=== PATIENT | male | born 1960 | race Two or more races ===

== ENCOUNTER → 2024-05-07 | Outpatient (CLI) | payer MEDICARE, MEDICAID, SELFPAY ==
--- NOTE | 2024-05-07 10:31 | XR_ITS ---
Examination: Bone densitometry Date and time of exam:May 07, 2024 1044 hours INDICATIONS:-64-year-old male, diabetic, history wrist fracture 20 years ago Technique: Lumbar spine and hip total bone mineralization values of an calculated. Peak reference and age match control results have been displayed. Findings: Lumbar spine total bone mineralization is1.039 gm/cm2. This is 0.5 standard deviations below peak reference. This is 0.2 standard deviations above age-matched controls. Hip total bone mineralization is 1.162 gm/cm2 This is 0.8 standard deviations above peak reference. This is 1.3 standard deviations above age-matched controls Impression: There is normal mineralization based on lumbar spine measurements. There is normal mineralization based on hip measurements
== END | disposition home or self-care (01) ==
PROVIDERS: Referring Provider Family Medicine; Visit Provider Family Medicine
DX: M81.0 Age-related osteoporosis without current pathological fracture (principal)
CPT/HCPCS: 77080

== ENCOUNTER → 2024-05-28 | Outpatient (CLI) | payer MEDICARE, MEDICAID, SELFPAY ==
--- NOTE | 2024-05-28 14:30 | XR_ITS ---
Examination: MRI brain without intravenous contrast. Date and time of exam: May 28, 2024 1506 hours INDICATIONS: Onset headaches with dizziness numbness in the extremities increasing memory loss 3 years, diagnosis amnesia Technique: Multiple axial and sagittal images of the brain obtained. Siemens high-resolution 1.5 Amy short bore scanners utilized. Sagittal sections, T1-weighted, TR 500, TE 14, are performed. Axial sections proton-density and T2-weighted have been obtained. Inversion recovery axial images, TR 9, 260, TE 111, TI 2500. Diffusion weighted images, axial sections, TR 4800, TE 128, B value 1000 Axial sections, ADC map, TR 4800, TE 128 Findings: Enlargement of the sella turcica is not present. The optic chiasm and infundibular are not remarkable. Prepontine and interpeduncular cisterns are not enlarged. There is no localized enlargement of the medulla or gerson. Fourth ventricle and cerebellar tonsils appear normal in position. No subacute area of hemorrhage density is seen. Mass in the cerebellopontine angle region is not evident. Globes symmetrical. Orbital musculature including medial lateral rectus muscles do not exhibit abnormality. Diffusion-weighted images demonstrate no focus restricted diffusion. Increased white matter signal evident, multiple punctate foci increased signal in the cerebral white matter Mass effect upon the ventricular system is not identified. Impression: Negative for acute hemorrhage mass effect or midline shift Multiple punctate foci increased signal in the cerebral white matter, demyelinating disease
== END | disposition home or self-care (01) ==
LOC: SMRI 05-29 10:01
PROVIDERS: PCP Family Medicine; Referring Provider Family Medicine; Visit Provider Family Medicine
DX: R90.82 White matter disease, unspecified (principal); G37.9 Demyelinating disease of central nervous system, unspecified
CPT/HCPCS: 70551

== ENCOUNTER 2024-06-16 11:00 | Outpatient (RCR) | payer MEDICARE, MEDICAID, SELFPAY ==
--- NOTE | 2024-06-05 13:37 | PT.OIERPT ---
PT OP Initial Eval Patient Information Outpatient Physical Therapy Treatment Date: 06/05/24 Visit Reasons: Impingement syndrome left shoulder Medical Diagnosis: Left Shoulder Impingement Syndrome Treatment Dx #1: Left Shoulder Pain Treatment Dx #2: Left Shoulder Mobility Deficits Start of Care: 06/05/24 Date of Onset: 2 years ago Smoking Status Smoking Status: Never smoker Initial Assessment Subjective: Pt is a 64 y/o male reports of left shoulder pain (11/27) started 2 years ago after he fell. Pt mentioned xray negative no MRI has been done thus far. Pt has limitation with overhead motions, lifting, chores, self care, cooking, cleaning, and performing recreational activities. Objective: Left Shoulder AROM Flexion: 160 deg Abduction: 150 deg External Rotation: 90 deg Internal Rotation: 50 deg Left Shoulder MMTs: grossly 3+/5 Left Scapula MMTs: grossly 3+/5 Special Test (+) speed (+) active motley's (+) hawkin-jose miguel Palpation: TTP long head of biceps Assessment: Pt demonstrate left shoulder pain and weakness leading to difficulty with ADLs. Pt will attempt physical therapy if pain persist Pt will be refer back to provider for further consultation. Short Term and Nursing Home Goals 1) Increase left shoulder AROM WFL in 6 wks to be able to perform overhead motions 2) Decrease shoulder pain to 2/10 in 6 wks to be able to perform lifting activities 3) Increase left shoulder MMTs grossly to 4/5 in 6 wks to be able to perform recreational activities 4) Increase left scapula MMTs grossly to 4-/5 in 6 wks to be able to perform self care activities 5) Indep with HEP Treatment Plan 1) Manual Therapy 2) Therapeutic Activities 3) Therapeutic Exercises 4) Modalities (ice, heat) Frequency and Duration: 2 x wk for 6 wks Certification Dates: 06/05/24 to 09/03/24 Procedure Charges OP PT Eval Mod Complex 30 minutes: Yes
--- NOTE | 2024-06-09 15:37 | PT.ODAYNRPT ---
PT Outpatient Daily Note OP Daily Note Outpatient Physical Therapy Treatment Date: 06/09/24 Visit Reasons: Impingement syndrome left shoulder Subjective: Pt c/o pain and stiffness. Objective: Please see flow sheet for ther ex list. Assessment: AAROM interventions completed with minimal pain. Plan: Assess response to treatment. Length of Time (minutes) of Treatment: 30 Minutes Procedure Charges Therapeutic Exercise 30 minutes: Yes
--- NOTE | 2024-06-16 11:18 | PT.ODAYNRPT ---
PT Outpatient Daily Note OP Daily Note Outpatient Physical Therapy Treatment Date: 06/16/24 Visit Reasons: Impingement syndrome left shoulder Subjective: Pt's shoulder is about the same. No change in pain. Objective: Please see flow chart for list of ther ex performed Assessment: minimal changes with pain post PT session. Pt demonstrate slight improvement with shoulder flexion and abduction AAROM Plan: Continue with PT Length of Time (minutes) of Treatment: 30 Minutes Procedure Charges Therapeutic Exercise 30 minutes: Yes
== END 2024-06-20 23:59 | disposition home or self-care (01) ==
LOC: CPTX 11:00
PROVIDERS: PCP Orthopaedic Surgery; Referring Provider Orthopaedic Surgery; Visit Provider Orthopaedic Surgery
DX: M25.512 Pain in left shoulder (principal); R53.1 Weakness; M75.42 Impingement syndrome of left shoulder
CPT/HCPCS: 97110; 97162

== ENCOUNTER 2024-07-21 12:47 | Outpatient (RCR) | payer MEDICARE, MEDICAID, SELFPAY ==
--- NOTE | 2024-07-21 14:18 | PT.ODAYNRPT ---
PT Outpatient Daily Note OP Daily Note Outpatient Physical Therapy Treatment Date: 07/21/24 Visit Reasons: Impingement syndrome of left shoulder Subjective: Pt reports shoulder has been painful and stiff. Objective: Please see flow sheet for ther ex list. Assessment: Interventions completed with c/o pain and soreness. Plan: Assess response to treatment. Length of Time (minutes) of Treatment: 30 Minutes Procedure Charges Therapeutic Exercise 30 minutes: Yes
== END 2024-08-18 23:59 | disposition home or self-care (01) ==
LOC: CPTX 12:47
PROVIDERS: PCP Orthopaedic Surgery; Referring Provider Orthopaedic Surgery; Visit Provider Orthopaedic Surgery
DX: M25.512 Pain in left shoulder (principal); R53.1 Weakness; M75.42 Impingement syndrome of left shoulder
CPT/HCPCS: 97110

== ENCOUNTER 2024-08-26 01:23 | Emergency (ER) | payer MEDICARE, MEDICAID, SELFPAY ==
[2024-08-26 01:26] VITALS: BP 140/91; PULSE 78; PULSE 85; RESP 15; RESP 16; TEMP 37.2; O2SAT 95
--- NOTE | 2024-08-26 01:29 | EKG_ITS ---
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
[2024-08-26 01:30] VITALS: BMI 38.2
--- NOTE | 2024-08-26 01:41 | EDNOTE_ITS ---
ED SOB =RME/HPI General Chief Complaint: Shortness of Breath/Dyspnea Stated Complaint: SOB Time Seen by Provider: 08/26/24 01:45 Arrival date/time: 08/26/24 01:23 RME / HPI RME / HPI Narrative: This section includes all my notes and documentations, including HPI, PE, and ED course. Aniceto Claire MD HPI: 64yo male with a history of COPD, DM, HTN, asthma BIBA from home presents to the ED for a chief complaint of shortness of breath. 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 He states he used his inhaler at home without any improvement, so he called 911 to come in for evaluation. He endorses having a productive cough with colored phlegm for about a week. He denies any fever, chills or any other associated symptoms. He is not on oxygen at home. Denies tobacco use. No other complaints reported. ROS: All negative except as documented in HPI. Physical Exam: General: Alert and oriented. No acute distress when remaining still. Eyes: Conjunctivae and lids clear. ENT: No nasal congestion. Neck: Supple. Heart: RRR. Lungs: No respiratory distress. Mildly decreased air movement. No rhonchi, wheezing, rales. Abdomen: Soft and nontender. Legs: No clubbing, cyanosis, edema. Skin: Warm and dry. Neuro: Alert and oriented X 3. I reviewed all diagnostic test results. My interpretation of the EKG is sinus rhythm with no acute ST-T?T changes. My interpretation of the chest x-ray is increased bronchial markings, official radiology report is pending. Blood tests unremarkable, including negative troponin/D-dimer/BNP. At this point, diagnoses include lower respiratory infection. Treatment here included Duoneb, Azithromycin, and Methylprednisolone. Significant improvement noted. Recommended outpatient treatment. Based on my best medical judgment, made decision no further evaluation or treatment indicated at this time. Patient understands and agrees to the discharge instructions customized and printed, see below. Discharge instructions from Dr. Claire: --No physical exertion for 3 days to help rest the lungs. ?No smoking or exposure to smoking or pets or dust or cold or humidity. --Zithromax to kill the germs causing the bronchitis. --Prednisone to help decrease the swelling in the airways. --Albuterol 2 puffs every 4-6 hours today and tomorrow to help keep the airways open. Then as needed for cough or shortness of breath. --See a private doctor next week if not completely better. --Seek immediate medical care with worsening or with any concerns. Aniceto Claire MD Related Data Home Medications ?Medication ?Instructions ?Recorded ?Confirmed benazepril 10 mg tablet 20 mg PO QDAY High Blood Pre ssure 02/07/18 03/31/21 insulin glargine 100 unit/mL (3 10 unit subcut QDAY 03/31/21 mL) subcutaneous pen (Basaglar KwikPen U-100 Insulin) hydroxyzine HCl 50 mg tablet 50 mg PO QID PRN Anxiety 03/31/21 03/31/21 metformin 1,000 mg tablet 1,000 mg PO BID 03/31/2104/10 trazodone 50 mg tablet 50 mg PO HS 03/31/21 1 Previous Rx's ?Medication ?Instructions ?Recorded nirmatrelvir 300 mg (150 mg See Rx Instructions PO .CO MPLEX 03/14/23 x2)-ritonavir 100 mg tablet,dose #30 tabs pack (Paxlovid) ondansetron 4 mg disintegrating 4 mg PO Q6H PRN nausea and 04/21/23 tablet vomiting #15 tabs azithromycin 500 mg tablet 500 mg PO QDAY 3 days #3 ta bs 08/26/24 (Zithromax TRI-ENMA) prednisone 20 mg tablet 20 mg PO BID 3 days #6 tabs 08/26/24 Allergies Allergy/AdvReac Type Severity Reaction Status Date / Time No Known Allergies Allergy Verified 08/26/24 01:26 Review of Systems Review of Systems Systems Reviewed: All systems reviewed, normal except as documented Past Medical History Past Medical History NEUROLOGIC: Negative Neurological Disorders or Seizures CARDIAC: Positive Cardiac Disorders, Hypercholesterolemia and Hypertension; Negative Congestive Heart Failure RESPIRATORY: Positive Chronic Obstructive Pulmonary Disease (COPD) and Asthma GASTROINTESTINAL: Positive Gastrointestinal Disorders, Hemorrhoids and Obesity GENITOURINARY: Positive Inguinal Hernia; Negative Genitourinary Disorders or Renal Disease MUSCULOSKELETAL: Positive Musculoskeletal Disorders, Arthritis and Degenerative Joint Disease ENT: Positive Ear Infection ENDOCRINE: Positive Endocrine Disorders and Diabetes Mellitus Type 2; Negative Diabetes Mellitus Type 1 HEMATOLOGIC: Negative Blood Disorders or Sickle Cell Disease PSYCHO/SOCIAL: Positive Depression and Anxiety OTHER HISTORY: Positive Hospitalization and Mumps; Negative Autoimmune Disease, Blood Transfusions, Blood Transfusion Reaction or Anesthesia Reactions Family History FAMILY HISTORY: Positive Family Cardiac Disorders and Family Surgery; Negative Family Psychiatric Problems, Family Respiratory Disorders, Family Gastrointestinal Problems, Family Cancer or Family Anesthesia Reaction Surgical History SURGICAL: Positive Cardiac Surgery, Open Heart Surgery, Coronary Stent, Angiogram and Arthroscopy Social History SMOKING STATUS: Never smoker ED Exam Narrative Physical exam: As noted in HPI. Course Course Course Narrative: CXR is ordered for determining the etiology of shortness of breath. Quality Measures none Orders Category Date Time Status Bedside COVID-19 Antigen Test NOW Care 08/26/24 01:32 Active Bedside Influenza A&B Antigen Test NOW Care 08/26/24 01:32 Completed EKG (ED ONLY) *Do not use* NOW Care 08/26/24 01:29 Completed Saline [Insert IV] NOW Care 08/26/24 01:45 Completed EKG (ED Only) Stat Exams 08/26/24 01:29 Draft XR chest 1V portable Stat Exams 08/26/24 01:46 Taken ABG [Arterial Blood Gas] Stat Lab 08/26/24 02:31 Completed BNP [B-Type Natriuretic Peptide] Stat Lab 08/26/24 01:30 Completed CBC Stat Lab 08/26/24 01:30 Completed CMP [Comprehensive Metabolic Panel] Stat Lab 08/26/24 01:30 Completed D-Dimer Stat Lab 08/26/24 01:30 Completed Magnesium Stat Lab 08/26/24 01:30 Completed Troponin I Stat Lab 08/26/24 01:30 Completed Albuterol/Ipratr Rt Izzy [Duoneb Rt Izzy] Med 08/26/24 01:45 Discontinued 3 ml INH X1 ONE Azithromycin Po [Zithromax PO] Med 08/26/24 02:53 Discontinued 500 mg PO X1 ONE MethylPREDNISolone.* [SoluMEDROL Inj] Med 08/26/24 01:45 Discontinued 125 mg IVP X1 ONE Vital Signs Vital signs: Vital Signs Temperature 99.0 F 08/26/24 01:26 Pulse Rate 78 08/26/24 01:26 Respiratory Rate 15 08/26/24 01:26 Blood Pressure 140/91 H 08/26/24 01:26 Pulse Oximetry (%) 95 08/26/24 01:26 Oxygen Delivery Method Room Air 08/26/24 01:26 Shortness of Breath / Dyspnea MDM Narrative MDM Narrative:: Scribe Attestation: 08/26/24 Andreia Linn am scribing for and in the presence of Dr. Claire. Patient data External records reviewed:: [facility] previous records (Per chart review, patient was seen here on 09/27/23 for anxiety.) Clinical information provided by:: patient Social determinants that could affect healthcare access:: none Patient has the following chronic illnesses:: COPD, HTN, DM, asthma How is presenting disease/condition affected by chronic disease/condition?: exacerbated by Evaluation data The following diagnostics were reviewed and interpreted by me:: lab results, radiology exam(s) and EKG tracing(s) Lab and/or radiology exams considered but not ordered:: none Interpretation Summary: Normal diagnostics Medications / Prescriptions Medications or Prescriptions considered but not ordered:: none Medication administrations:: Medication Administration History Discontinued Medications Albuterol/Ipratropium (Albuterol/Ipratropium (Duoneb) Rt Izzy 3 Ml Nebu) 3 ml INH X1 ONE Stop: 08/26/24 01:46 Last Admin: 08/26/24 02:24 Dose: 3 ml Documented By: BRADLEY Azithromycin (Azithromycin 250 Mg Tablet) 500 mg PO X1 ONE Stop: 08/26/24 02:54 Last Admin: 08/26/24 03:06 Dose: 500 mg Documented By: JENNIFER Methylprednisolone Sodium Succinate (Methylprednisolone Sod Succ 62.5 Mg/Ml 2ml Vial) 125 mg IVP X1 ONE Stop: 08/26/24 01:46 Last Admin: 08/26/24 01:57 Dose: 125 mg Documented By: JENNIFER Duoneb, Azithromycin, Methylprednisolone Consultations Consultation(s) initiated? (list below): No Diagnosis Shortness of Breath Differential Diagnosis: acute exacerbation of chronic obstructive airways disease, congestive heart failure, community acquired pneumonia, asthma with exacerbation, pulmonary embolism and other (Bronchitis, right lower respiratory traction) Most likely diagnosis given after review of the tests above:: Lower respiratory infection Admission Indicated Admission indicated?: not indicated Explain why admission is indicated or not indicated:: With significant improvement, there was no indication for admission. Admission Request Was there a request for admission?: No Disposition Plan Disposition Plan: Discharge Discharge Attestation Discharge Attestation: The patient and all family members were given an opportunity to ask questions and understood the discharge instructions. Discharge instructions specifically effects, indications for sooner follow up or return to the emergency department, and the expected course of current diagnosis. Patient condition: Stable Discharge Plan Plan Patient Disposition: HOME (Self Care) Prescriptions/Referrals Prescriptions/Med Rec: New prednisone 20 mg tablet 20 mg PO BID 3 Days Qty: 6 0RF Taper: Prednisone Taper 20 mg DAILY for 2 Days and 0 Hour 10 mg DAILY for 2 Days and 0 Hour 5 mg DAILY for 7 Days and 0 Hour azithromycin [Zithromax TRI-ENMA] 500 mg tablet 500 mg PO QDAY 3 Days Qty: 3 0RF No Action Basaglar KwikPen U-100 Insulin 100 unit/mL (3 mL) insulin pen 10 unit SUBCUT QDAY Patient Comments: INJECT 60 UNITS SUBCUTANEOUSLY IN THE MORNING & 65 UNITS IN THE EVENING FOR DIABETES trazodone 50 mg Tablet 50 mg PO HS hydroxyzine HCl [Atarax] 50 mg Tablet 50 mg PO QID PRN (Reason: Anxiety) metformin 1,000 mg Tablet 1,000 mg PO BID benazepril 10 mg Tablet 20 mg PO QDAY ondansetron 4 mg tablet,disintegrating 4 mg PO Q6H PRN (Reason: nausea and vomiting) Qty: 15 0RF Paxlovid 300 mg (150 mg x 2)-100 mg tablets,dose pack See Rx Instructions .ROUTE .COMPLEX Qty: 30 0RF Rx Instructions: take TWO 150 mg tablets of nirmatrelvir with ONE 100 mg tablet of ritonavir twice daily for 5 days Problem List Clinical Impression: Lower respiratory infection Patient/Caregiver Discharge Instructions Discharge Activity: activity as tolerated Education Materials: ED Bronchitis with Wheezing (Adult) Additional Instructions: Discharge instructions from Dr. Claire: --No physical exertion for 3 days to help rest the lungs. ?No smoking or exposure to smoking or pets or dust or cold or humidity. --Zithromax to kill the germs causing the bronchitis. --Prednisone to help decrease the swelling in the airways. --Albuterol 2 puffs every 4-6 hours today and tomorrow to help keep the airways open. Then as needed for cough or shortness of breath. --See a private doctor next week if not completely better. --Seek immediate medical care with worsening or with any concerns. Print Language: Vietnamese Stand Alone Forms: Lea Award Info., Patient Portal Info Letter
--- NOTE | 2024-08-26 01:46 | XR_ITS ---
Examination: AP chest single view Technique: AP portable upright chest single view Exam date and time: August 26, 2024 0155 hrs. Indications: Shortness of breath today. Findings: Minimal prominence left ventricle. No pneumonia or pulmonary edema. Moderate osteopenia Impression: No pneumonia or pulmonary edema
[2024-08-26] MEDS: MethylPREDNISolone SOD SUCC 62.5 MG/ML 2ML VIAL 125 MG IVP (01:57)
[2024-08-26 02:12] LABS: Basophils # (Auto) 0.1 Thou/mm3 (0.0-0.2); Basophils % (Auto) 1 % (0-2.5); Eosinophils # (Auto) 0.3 Thou/mm3 (0.0-0.5); Eosinophils % (Auto) 4 % (0-10); Hemoglobin 14.8 g/dL (13.5-16.0); Immature Granulocytes % (Auto) 0 % (0-0); Immature Granulocytes Auto 0.02 Thou/mm3 (0.00-0.00); Lymphocytes # (Auto) 3.7 Thou/mm3 (1.0-4.8); Lymphocytes % (Auto) 48 % (10-50); Mean Corpuscular HGB Conc 35.2 g/dl (31.0-37.0); Mean Corpuscular Hemoglobin 32.2 pg (25.0-35.0); Mean Corpuscular Volume 92 fL (80-100); Monocytes # (Auto) 0.7 Thou/mm3 (0.0-0.8); Monocytes % (Auto) 9 % (0-12); Neutrophils # (Auto) 2.9 Thou/mm3 (1.8-7.7); Neutrophils % (Auto) 37 % (37-80); Nucleated Red Blood Cell % 0 /100 WBC (0); Platelet Count 148 Thou/mm3 (140-440); RDW Standard Deviation 46.5 fL (35.1-43.9); Red Blood Count 4.59 Miln/mm3 (4.50-5.90); White Blood Count 7.6 Thou/mm3 (3.8-10.6)
[2024-08-26] MEDS: ALBUTEROL/IPRATROPIUM (Duoneb) RT SOL 3 ML NEBU INH (02:24)
[2024-08-26 02:34] VITALS: PULSE 75; RESP 17; O2SAT 99
[2024-08-26 02:40] LABS: Alanine Aminotransferase 25 U/L (10-49); Albumin, Serum 4.5 gm/dL (3.4-4.8); Albumin/Globulin Ratio 1.5 (1.2-2.2); Alkaline Phosphatase 71 U/L (46-116); Anion Gap 11 (7-16); Aspartate Amino Transferase 26 U/L (0-34); BUN/Creatinine Ratio 27 Ratio (12-20); Bilirubin,Total 0.5 mg/dL (0.3-1.2); Blood Urea Nitrogen 27 mg/dL (9-23); Calcium 9.4 mg/dL (8.3-10.6); Calcium (Corrected) 9.4 mg/dL (8.5-10.1); Carbon Dioxide 23.3 mMol/L (20.0-31.0); Chloride 104 mMol/L (98-107); Estimated Creatinine Clearance 102.8 mL/min (>60); Globulin 3.1 gm/dL (2.3-3.5); Glucose 133 mg/dL (74-106); Osmolality,Calculated 282 (275-295); Sodium 138 mMol/L (136-145); Total Protein 7.6 gm/dL (5.7-8.2); Troponin I < 0.002 ng/mL (0.0-0.045); eGFR > 60 See Note
[2024-08-26 02:44] LABS: Base Excess 1 (-3-3); HCO3 25 mEq/L (20-26); Inspired Oxygen, FIO2 96 %; O2 Saturation 96 % (91-98); PCO2 38 mmHg (32.0-48.0); PO2 74 mmHg (83-108); pH, Arterial 7.42 (7.35-7.45)
[2024-08-26 02:45] LABS: Allen Test Performed/OK; Puncture Site Right Radial
[2024-08-26 03:01] LABS: D-Dimer < 250 ng/mL (<600)
[2024-08-26 03:04] LABS: B-Type Natriuretic Peptide < 20 pg/mL (0-100)
[2024-08-26] MEDS: AZITHROMYCIN 250 MG TABLET 500 MG PO (03:06)
[2024-08-26 03:24] VITALS: BP 135/76; PULSE 80; RESP 18; TEMP 37; O2SAT 96
== END 2024-08-26 03:25 | disposition home or self-care (01) ==
LOC: SERX 03:34
PROVIDERS: Emergency Provider Emergency Medicine; PCP Family Medicine
DX: J44.0 Chronic obstructive pulmonary disease with (acute) lower respiratory infection (principal); I10 Essential (primary) hypertension; E11.9 Type 2 diabetes mellitus without complications
CPT/HCPCS: 36415; 36600; 71045; 80053; 82803; 83735; 83880; 84484; 85025; 85379; 87400; 87811; 93005; 94640; 96374; 99284; A9270; J2919